=== PATIENT | female | born 1960 | race Caucasian/White ===

== ENCOUNTER → 2017-03-20 | Outpatient (CLI) | payer OTHER | END | disposition home or self-care (01) | LOC: EKG 15:47 | PROVIDERS: ATTEND Internal Medicine Cardiovascular Disease | DX: I45.10 Unspecified right bundle-branch block (principal); R55 Syncope and collapse; R00.2 Palpitations | CPT/HCPCS: 93225 ==

== ENCOUNTER → 2017-04-07 | Outpatient (CLI) | payer OTHER ==
--- NOTE | 2017-04-07 18:17 | CARD ---
APPROVED REPORT EXAM: Two-dimensional and M-mode echocardiogram with Doppler and color Doppler. Other Information Quality : Good INDICATION Dyspnea Fatigue 2D DIMENSIONS RVDd2.6 (2.9-3.5cm)Left Atrium(2D)3.4 (1.6-4.0cm) IVSd1.1 (0.7-1.1cm)Aortic Root(2D)3.0 (2.0-3.7cm) LVDd4.3 (3.9-5.9cm)LVOT Diameter2.3 (1.8-2.4cm) PWd1.1 (0.7-1.1cm)LVDs3.5 (2.5-4.0cm) FS (%) 27.5 %SV32.4 ml LVEF(%)55.0 (>50%) Aortic Valve AoV Peak Luc.94.4cm/sAoV VTI17.0cm AO Peak GR.3.6mmHgLVOT Peak Luc.74.7cm/s LVOT VTI 13.94cmAO Mean GR.2mmHg MAUREEN (VMAX)3.27uo7VJH (VTI)3.39cm2 Mitral Valve MV E Dqzhymqy76.3cm/sMV DECEL [id number] MV A Idspocfr05.1cm/sMV GIL56gc E/A Ratio0.7MVA (PHT)3.35cm2 TDI E/Lateral E'10.4E/Medial E'8.1 Pulmonary Vein S1 Qjjaiutg22.4cm/sD2 Btgxnkjl64.2cm/s PVa [id number] LEFT VENTRICLE The left ventricle is normal size. There is normal left ventricular wall thickness. The left ventricu lar systolic function is normal and the ejection fraction is within normal range. The Ejection Fracti on is 55%. There is normal LV segmental wall motion. Transmitral Doppler flow pattern is Grade I-abno rmal relaxation pattern. RIGHT VENTRICLE The right ventricle is normal size. The right ventricular systolic function is normal. ATRIA The left atrium size is normal. The right atrium size is normal. The interatrial septum is intact wit h no evidence for an atrial septal defect or patent foramen ovale as noted on 2-D or Doppler imaging. AORTIC VALVE The aortic valve is normal in structure and function. Doppler and Color Flow revealed no significant aortic regurgitation. There is no significant aortic valvular stenosis. MITRAL VALVE The mitral valve is normal in structure There is no evidence of mitral valve prolapse. There is no mi tral valve stenosis. Doppler and Color-flow revealed trace to mild mitral regurgitation. TRICUSPID VALVE The tricuspid valve is normal in structure and function. Doppler and Color Flow revealed no tricuspid valve regurgitation noted. There is no tricuspid valve stenosis. PULMONIC VALVE The pulmonary valve is normal in structure and function. Doppler and Color Flow revealed no pulmonic valvular regurgitation. There is no pulmonic valvular stenosis. GREAT VESSELS The aortic root is normal in size. The ascending aorta is normal in size. The IVC is normal in size a nd collapses >50% with inspiration. PERICARDIAL EFFUSION There is no evidence of significant pericardial effusion. There is a pericardial fat pad visualized. Critical Notification Critical Value: No <Conclusion> The left ventricular systolic function is normal and the ejection fraction is within normal range. The Ejection Fraction is 55%. Transmitral Doppler flow pattern is Grade I-abnormal relaxation pattern. The left atrium size is normal. The right atrium size is normal. The aortic valve is normal in structure and function. Doppler and Color-flow revealed trace to mild mitral regurgitation. The tricuspid valve is normal in structure and function. The pulmonary valve is normal in structure and function. There is no evidence of significant pericardial effusion. There is a pericardial fat pad visualized.
== END | disposition home or self-care (01) ==
LOC: ECHO 13:42
PROVIDERS: ATTEND Internal Medicine Cardiovascular Disease
DX: I34.0 Nonrheumatic mitral (valve) insufficiency (principal); R06.02 Shortness of breath; R53.83 Other fatigue
CPT/HCPCS: 93306

== ENCOUNTER → 2021-02-15 | Outpatient (CLI) | payer OTHER ==
--- NOTE | 2021-02-15 15:29 | KCIC ---
Examination: MRI left hip without contrast HISTORY: History of left hip pain COMPARISON: None available TECHNIQUE: Multiplanar, multisequence MR imaging of the left hip was performed without contrast FINDINGS: The left femoral head is within the acetabulum. The attachment of the hamstring tendon to the ischial tuberosity, , attachment of the iliopsoas tendo n to the lesser trochanter and the attachment of the rectus femoris tendon to the anterior inferior i liac spine grossly appears intact. Moderate increased intensity signal identified in the distal aspec t of the gluteus minimus, gluteus medius tendon at the attachment particularly in the anterior aspect of the greater trochanter likely partial tear. The visualized labrum grossly appears unremarkable. Mild joint space loss left hip joint likely degenerative changes. IMPRESSION: Moderate increased T2 signal identified in the distal aspect of the gluteus minimus, gluteus medius t endon at the attachment particularly in the anterior aspect of the greater trochanter likely partial tear. Electronically signed by: Jose Ramon Jeffries MD (02/15/2021 3:26 PM) [id number]
== END ==
LOC: KCIC MRI 13:27
PROVIDERS: ATTEND Nurse Practitioner Family
DX: M25.511 Pain in right shoulder (principal); G89.29 Other chronic pain
CPT/HCPCS: 73721